=== PATIENT | female | born 1945 | race African-American/Black ===

== ENCOUNTER 2022-04-01 12:31 | Emergency (ER) | payer MEDICARE, MEDICAID ==
[~2022-04-01] VITALS: Ht 165.1 cm; Wt 69.0 kg
[2022-04-01] MEDS ORDERED: ACETAMINOPHEN WITH CODEINE 300/30MG TABLET PO STA (14:27)
[2022-04-01] MEDS ORDERED: IBUPROFEN 600MG TABLET PO STA (14:27)
[2022-04-01 15:58] VITALS: BP 160/87
[2022-04-01] MEDS ORDERED: ACETAMINOPHEN WITH CODEINE 300/30MG TABLET PO NR (16:00)
[2022-04-01] MEDS ORDERED: T3 PO (16:20)
[2022-04-01] MEDS ORDERED: NAPR-681 PO (16:20)
== END 2022-04-01 17:34 | disposition home or self-care (01) ==
LOC: ER 14:10
DX: S63.392A Traumatic rupture of other ligament of left wrist, initial encounter (principal); W01.0XXA Fall on same level from slipping, tripping and stumbling without subsequent striking against object, initial encounter; Y93.89 Activity, other specified; Y92.89 Other specified places as the place of occurrence of the external cause; Y99.8 Other external cause status
CPT/HCPCS: 29125; 73110; 73130; 99284